=== PATIENT | male | born 1945 | race Caucasian/White ===

== ENCOUNTER → 2017-03-17 | Outpatient (CLI) | payer MEDICARE | LOC: SLEEP 21:30 | DX: G47.33 Obstructive sleep apnea (adult) (pediatric) (principal) | CPT/HCPCS: 95811 ==

== ENCOUNTER → 2021-02-19 | Day surgery (SDC) | payer MEDICARE ==
[~2021-02-19] MED LIST: AMLODIPINE BESY10 MG PO; ARTHRO 7 PO; ATORVASTATIN CA80 MG PO; B-122500 MCG SL; CLARITIN5 MG PO; D3-20002000 UNIT PO; DIOVAN HCT 3201 EAC1 PO; EFFEXOR 37.537.5 MG PO; FELODIPINE ER2.5 MG PO; FOLBIC RF TABL1 EACH PO; INDERAL TAB 1010 MG PO; MAGOX 400400 MG PO; NIACIN CR 500500 MG PO; PROPRANOLOL HCL10 MG PO; PROTONIX40 MG PO; THIAMINE HCL100 MG PO; TRICOR 145 MG145 MG PO; ZYRTEC10 MG PO
== END | disposition home or self-care (01) ==
LOC: OR 07:29
PROVIDERS: Internal Medicine Gastroenterology
PROC: 0DBM8ZX Excision of Descending Colon, Via Natural or Artificial Opening Endoscopic, Diagnostic (ICD-10-PCS; 2021-02-19)
PROC: 0DB68ZX Excision of Stomach, Via Natural or Artificial Opening Endoscopic, Diagnostic (ICD-10-PCS; principal; 2021-02-19 08:35)
PROC: 0DB78ZX Excision of Stomach, Pylorus, Via Natural or Artificial Opening Endoscopic, Diagnostic (ICD-10-PCS; 2021-02-19 08:35)
DX: K31.89 Other diseases of stomach and duodenum (principal); K44.9 Diaphragmatic hernia without obstruction or gangrene; K52.89 Other specified noninfective gastroenteritis and colitis; D12.4 Benign neoplasm of descending colon; K29.50 Unspecified chronic gastritis without bleeding; K26.7 Chronic duodenal ulcer without hemorrhage or perforation; K57.30 Diverticulosis of large intestine without perforation or abscess without bleeding; K64.1 Second degree hemorrhoids; K22.2 Esophageal obstruction; D50.0 Iron deficiency anemia secondary to blood loss (chronic); I10 Essential (primary) hypertension; E78.5 Hyperlipidemia, unspecified; D72.89 Other specified disorders of white blood cells; F10.10 Alcohol abuse, uncomplicated; E66.9 Obesity, unspecified; Z68.29 Body mass index [BMI] 29.0-29.9, adult; Z87.891 Personal history of nicotine dependence; Z79.899 Other long term (current) drug therapy
CPT/HCPCS: J2704

== ENCOUNTER → 2021-02-24 | Outpatient (CLI) | payer MEDICARE | LOC: KOH-I 08:47 | DX: R74.8 Abnormal levels of other serum enzymes (principal); K76.0 Fatty (change of) liver, not elsewhere classified | CPT/HCPCS: 76705 ==

== ENCOUNTER → 2021-09-09 | Outpatient (CLI) | payer MEDICARE | LOC: LAB 11:01 | PROVIDERS: Family Medicine | DX: D50.9 Iron deficiency anemia, unspecified (principal); E78.2 Mixed hyperlipidemia; E83.42 Hypomagnesemia; E87.6 Hypokalemia | CPT/HCPCS: 36415; 80048 ==